=== PATIENT | female | born 1935 | race Caucasian/White ===

== ENCOUNTER → 2018-08-10 | Outpatient (CLI) | payer MEDICARE ==
[~2018-08-10] MED LIST: AMLO5TAB9 PO; DIPH-543 PO; FERS325 PO; FLUT15.88 EN; LISI-613 PO; METO100T14 PO; OMEP20TA25 PO; PRAV20TA4 PO; TRAM50TA4 PO
== END | disposition home or self-care (01) ==
LOC: SHCH 10:17
PROVIDERS: ATTEND Internal Medicine Cardiovascular Disease
DX: I35.8 Other nonrheumatic aortic valve disorders (principal); Z95.2 Presence of prosthetic heart valve
CPT/HCPCS: 93306

== ENCOUNTER → 2018-08-19 | Outpatient (CLI) | payer MEDICARE | END | disposition home or self-care (01) | LOC: SHCH 07:33 | PROVIDERS: ATTEND Internal Medicine Cardiovascular Disease | DX: I70.0 Atherosclerosis of aorta (principal); I71.4 Abdominal aortic aneurysm, without rupture | CPT/HCPCS: 93978 ==

== ENCOUNTER 2018-10-15 06:54 | Day surgery (SDC) | payer MEDICARE ==
[~2018-10-15] VITALS: Ht 162.6 cm; Wt 79.4 kg
[~2018-10-15 06:54] MED LIST changes: +SODIUM CHLORIDE 0.9% 1000ML 1,000 ML IV ONE
[2018-10-15 07:55] VITALS: BP 159/59
[2018-10-15] MEDS ORDERED: POLY1GRA MC (08:24)
[2018-10-15] MEDS ORDERED: APIX5TAB PO (08:24)
[2018-10-15] MEDS ORDERED: MELA5TAB21 PO (08:24)
[2018-10-15] MEDS ORDERED: SODIUM BIC PO (08:24)
[2018-10-15 08:51] VITALS: BP 93/41
[2018-10-15 08:56] VITALS: BP 102/36
[2018-10-15 08:57] VITALS: BP 99/34
[2018-10-15 08:58] VITALS: BP 110/45
[2018-10-15 09:03] VITALS: BP 116/45
== END 2018-10-15 09:11 | disposition home or self-care (01) ==
LOC: DAH 06:54 → ENDO 06:54
PROVIDERS: ATTEND Internal Medicine
DX: K31.7 Polyp of stomach and duodenum (principal); K29.50 Unspecified chronic gastritis without bleeding; E78.5 Hyperlipidemia, unspecified; K44.9 Diaphragmatic hernia without obstruction or gangrene; K31.89 Other diseases of stomach and duodenum; I10 Essential (primary) hypertension; M19.90 Unspecified osteoarthritis, unspecified site; Z68.31 Body mass index [BMI] 31.0-31.9, adult; Z79.899 Other long term (current) drug therapy; Z98.890 Other specified postprocedural states; Z98.49 Cataract extraction status, unspecified eye
CPT/HCPCS: 43239; 43251; 88305; 88342; 93005; A4606; J7030

== ENCOUNTER → 2019-12-21 | Outpatient (CLI) | payer MEDICARE ==
[~2019-12-21] MED LIST changes: +APIX5TAB PO; -DIPH-543 PO; -FLUT15.88 EN; +MELA5TAB21 PO; +POLY1GRA MC; +SODIUM BIC PO; -SODIUM CHLORIDE 0.9% 1000ML 1,000 ML IV ONE; -TRAM50TA4 PO
== END | disposition home or self-care (01) ==
LOC: SHCH 07:52
PROVIDERS: ATTEND Internal Medicine Cardiovascular Disease
DX: I71.4 Abdominal aortic aneurysm, without rupture (principal)
CPT/HCPCS: 93978

== ENCOUNTER → 2021-03-14 | Outpatient (CLI) | payer MEDICARE ==
[~2021-03-14] MED LIST changes: +AMLO-257 PO; -AMLO5TAB9 PO; -LISI-613 PO; +LISI20TA24 PO
== END | disposition home or self-care (01) ==
LOC: SHCH 07:36
PROVIDERS: ATTEND Internal Medicine Cardiovascular Disease
DX: I70.0 Atherosclerosis of aorta (principal); I34.0 Nonrheumatic mitral (valve) insufficiency; I71.4 Abdominal aortic aneurysm, without rupture
CPT/HCPCS: 93306; 93978

== ENCOUNTER 2022-01-05 07:49 | Emergency (ER) | payer MEDICARE ==
[~2022-01-05] VITALS: Ht 162.6 cm; Wt 80.7 kg
[~2022-01-05 07:49] MED LIST changes: +OMEP20TA20 PO; -OMEP20TA25 PO
[2022-01-05] MEDS ORDERED: TRAM50TA4 PO (08:35)
[2022-01-05 08:54] VITALS: BP 138/72
== END 2022-01-05 08:53 | disposition home or self-care (01) ==
LOC: EDH 07:49
DX: S00.03XA Contusion of scalp, initial encounter (principal); I10 Essential (primary) hypertension; Z88.0 Allergy status to penicillin; Z88.5 Allergy status to narcotic agent; Z88.6 Allergy status to analgesic agent; Z79.899 Other long term (current) drug therapy; Z79.01 Long term (current) use of anticoagulants; Z90.89 Acquired absence of other organs; Z90.49 Acquired absence of other specified parts of digestive tract; Z98.890 Other specified postprocedural states; W19.XXXA Unspecified fall, initial encounter; Y93.89 Activity, other specified; Y92.89 Other specified places as the place of occurrence of the external cause; Y99.8 Other external cause status
CPT/HCPCS: 70450; 93005

== ENCOUNTER → 2023-01-28 | Outpatient (CLI) | payer MEDICARE ==
[~2023-01-28] MED LIST changes: +TRAM50TA4 PO
== END | disposition home or self-care (01) ==
LOC: RAH 12:33
PROVIDERS: ATTEND Internal Medicine
DX: R13.10 Dysphagia, unspecified (principal); R63.30 Feeding difficulties, unspecified
CPT/HCPCS: 74230; 92611

== ENCOUNTER 2023-05-18 02:40 | Inpatient (IN) | payer MEDICARE ==
[2023-05-18] VITALS (10 sets, daily range): BP systolic 130–140; BP diastolic 61–77; PULSE 60–126; RESP 16–20; O2SAT 92–97
[~2023-05-18] VITALS: Ht 162.6 cm; Wt 76.9 kg
[~2023-05-18 02:40] MED LIST changes: +SULF1TAB42 PO
[2023-05-18 03:27] LABS: BASOPHILS # (AUTO) 0.05 K/uL (0.00-0.20); BASOPHILS % (AUTO) 0.4 % (0.0-5.0); EOSINOPHILS # (AUTO) 0.22 K/uL (0.00-0.70); EOSINOPHILS % (AUTO) 1.8 % (0.0-8.0); HEMATOCRIT 37.4 % (36-48); IMMATURE GRANULOCYTE ABSOLUTE 0.04 K/uL (0-1); LYMPHOCYTES # (AUTO) 1.4 K/uL (1.0-4.8); LYMPHOCYTES % (AUTO) 11.7 % (21.0-51.0); MEAN CORPUSCULAR HEMOGLOBIN 29.6 pg (27.0-33.0); MEAN CORPUSCULAR HGB CONC 33.2 g/dL (32.0-36.0); MEAN CORPUSCULAR VOLUME 89.3 fL (79-99); MONOCYTES % (AUTO) 8.5 % (3.0-13.0); NEUTROPHILS # (AUTO) 9.3 K/uL (1.8-7.7); NEUTROPHILS % (AUTO) 77.3 % (40.0-77.0); PLATELET COUNT (AUTO) 221 K/uL (130-400); RED BLOOD CELL COUNT(AUTO) 4.19 MIL/uL (4.00-5.50); RED CELL DISTRIBUTION WIDTH 13.7 % (11.0-15.5)
[2023-05-18] MEDS ORDERED: SOLU-MEDROL 125MG VIAL IVP ONE (03:30)
[2023-05-18] MEDS ORDERED: FUROSEMIDE 40MG VIAL IV ONE (03:30)
[2023-05-18] MEDS ORDERED: IPRATROPIUM/ALBUTEROL SULFATE 3 ML SOLUTION IH ONE (03:30)
[2023-05-18 03:38] LABS: CREATININE 1.4 mg/dL (0.5-1.5); POTASSIUM 4.4 mmol/L (3.5-5.1)
[2023-05-18 03:45] LABS: ALBUMIN 3.5 g/dL (3.5-5.0); BILIRUBIN,TOTAL 0.5 mg/dL (0.2-1.0)
[2023-05-18 03:51] LABS: B-TYPE NATRIURETIC PEPTIDE 82 pg/mL (0-100)
[2023-05-18 04:30] LABS: ADD UA MICROSCOPIC YES; APPEARANCE,URINE CLEAR (CLEAR); BILIRUBIN,URINE NEGATIVE (NEGATIVE); COLOR,URINE COLORLESS (YELLOW); GLUCOSE, URINE (UA) NEGATIVE (NEGATIVE); KETONES,URINE NEGATIVE (NEGATIVE); LEUKOCYTE ESTERASE ,URINE NEGATIVE Leu/uL (NEGATIVE); NITRATE,URINE NEGATIVE (NEGATIVE); OCCULT BLOOD,URINE SMALL (NEGATIVE); PROTEIN,URINE NEGATIVE (NEGATIVE); UROBILINOGEN,URINE 0.2 mg/dL (0.2-1.0)
[2023-05-18 04:36] LABS: BACTERIA,URINE RARE /HPF (None Seen); SQUAMOUS EPITHELIAL CELL,UR RARE /HPF (0-2); WBC,URINE 0-1 /HPF (0-1)
[2023-05-18 04:39] LABS: RBC,URINE 0-1 /HPF (0-1)
[2023-05-18] MEDS ORDERED: PHARMACY COMMUNICATION MISC SCH ×2 (05:30→06:00)
[2023-05-18] MEDS ORDERED: CEFTRIAXONE 1G VIAL IVPB ONE (05:30)
[2023-05-18] MEDS: AZITHROMYCIN 500MG+NS 250ML IVPB SCH (05:52)
[2023-05-18] MEDS ORDERED: HYDRALAZINE 20MG/ML VIAL IV PRN (06:00)
[2023-05-18] MEDS ORDERED: CLONIDINE HCL 0.1 MG TABLET PO PRN (06:00)
[2023-05-18] MEDS ORDERED: IPRATROPIUM/ALBUTEROL SULFATE 3 ML SOLUTION IH PRN (06:00)
[2023-05-18] MEDS ORDERED: ONDANSETRON 4MG INJ IVP PRN (06:00)
[2023-05-18] MEDS ORDERED: ACETAMINOPHEN 325 MG TAB PO PRN (06:00)
[2023-05-18 06:26] LABS: CREATINE KINASE, TOTAL 33 U/L (21-232); MYOGLOBIN 68 ng/mL (10-92)
[2023-05-18] MEDS: IPRATROPIUM 0.5 MG/2.5 ML INH IH SCH ×4 (06:41→23:33)
[2023-05-18 06:52] LABS: ABG HCO3 24.2 mmol/L (21.0-28.0); ABG OXYGEN SATURATION 72.9 % (95.0-99.0); ABG PCO2 38 mmHg (32-45); ABG PH 7.421 (7.35-7.450); PO2, ARTERIAL BG < 45.0 mmHg (83.0-108.0); VENT MODE, BG NC (ROOM AIR)
[2023-05-18] MEDS: INSULIN HUMULIN R 100 UNIT/ML 3ML SQ SCH ×4 (07:30→20:28)
[2023-05-18] MEDS ORDERED: IOHEXOL-350 75 ML VIAL IV ONE (07:43)
[2023-05-18] MEDS ORDERED: 0.9%NACL 1000ML 1,000 ML IV SCH (08:00)
[2023-05-18] MEDS ORDERED: ENOXAPARIN SODIUM 30 MG/0.3 ML SQ SCH (09:00)
[2023-05-18] MEDS ORDERED: AZITHROMYCIN 500MG+NS 250ML IV SCH (09:00)
[2023-05-18] MEDS: PANTOPRAZOLE 40 MG TAB DR PO SCH (09:14)
[2023-05-18] MEDS: FUROSEMIDE 40MG VIAL IV SCH (09:14)
[2023-05-18] MEDS: CEFTRIAXONE 2GM VIAL IVPB SCH (20:21)
[2023-05-18 21:47] LABS: SARS-CoV-2, RNA, NAAT NEGATIVE SARS CoV-2 (NEGATIVE)
[2023-05-18 21:53] LABS: INFLUENZA TYPE A Negative For Type A (NEGATIVE); INFLUENZA TYPE B Negative For Type B (NEGATIVE)
[2023-05-19] VITALS (14 sets, daily range): BP systolic 131–174; BP diastolic 66–97; PULSE 64–110; RESP 14–20; O2SAT 91–95
[2023-05-19] MEDS: AZITHROMYCIN 500MG+NS 250ML IVPB SCH (04:34)
[2023-05-19 04:48] LABS: BASOPHILS # (AUTO) 0.01 K/uL (0.00-0.20); BASOPHILS % (AUTO) 0.1 % (0.0-5.0); HEMATOCRIT 36.8 % (36-48); IMMATURE GRANULOCYTE ABSOLUTE 0.09 K/uL (0-1); LYMPHOCYTES # (AUTO) 1.1 K/uL (1.0-4.8); LYMPHOCYTES % (AUTO) 6.5 % (21.0-51.0); MEAN CORPUSCULAR HEMOGLOBIN 29.5 pg (27.0-33.0); MEAN CORPUSCULAR HGB CONC 33.2 g/dL (32.0-36.0); MEAN CORPUSCULAR VOLUME 88.9 fL (79-99); MONOCYTES # (AUTO) 1.2 K/uL (0.1-1.0); MONOCYTES % (AUTO) 7.5 % (3.0-13.0); NEUTROPHILS # (AUTO) 13.8 K/uL (1.8-7.7); NEUTROPHILS % (AUTO) 85.3 % (40.0-77.0); PLATELET COUNT (AUTO) 239 K/uL (130-400); RED BLOOD CELL COUNT(AUTO) 4.14 MIL/uL (4.00-5.50); RED CELL DISTRIBUTION WIDTH 13.8 % (11.0-15.5); WHITE BLOOD COUNT (AUTO) 16.2 K/uL (4.8-10.8)
[2023-05-19 05:00] LABS: INR 1.03 (0.85-1.15); PROTHROMBIN TIME 11.1 SEC (9.6-11.6)
[2023-05-19 05:12] LABS: B-TYPE NATRIURETIC PEPTIDE 189 pg/mL (0-100)
[2023-05-19 05:13] LABS: ALANINE AMINOTRANSFERASE 17 U/L (12-78); ALBUMIN 3.5 g/dL (3.5-5.0); AMMONIA < 10 umol/L (11-32); ASPARTATE AMINOTRANSFERASE 17 U/L (10-37); BILIRUBIN,TOTAL 0.4 mg/dL (0.2-1.0); CARBON DIOXIDE 27 mmol/L (21-32); CHLORIDE 96 mmol/L (101-111); CREATINE KINASE, TOTAL 43 U/L (21-232); CREATININE 1.4 mg/dL (0.5-1.5); GLOMERULAR FILTR. RATE CALC 36 mL/min (>90); GLUCOSE,RANDOM 112 mg/dL (70-105); PHOSPHORUS 4.2 mg/dL (2.5-4.9); POTASSIUM 4.2 mmol/L (3.5-5.1); SODIUM SERUM 132 mmol/L (136-145); THYROID STIMULATING HORMONE 0.57 uIU/mL (0.36-3.74); TOTAL PROTEIN, SERUM 7.4 g/dL (6.0-8.3); UREA NITROGEN, BLOOD 27 mg/dL (7-18)
[2023-05-19] MEDS: INSULIN HUMULIN R 100 UNIT/ML 3ML SQ SCH ×4 (05:30→20:04)
[2023-05-19] MEDS: IPRATROPIUM 0.5 MG/2.5 ML INH IH SCH ×4 (06:26→23:24)
[2023-05-19] MEDS ORDERED: METOPROLOL TARTRATE 1 MG/ML 5ML VIAL IV STA (08:33)
[2023-05-19] MEDS ORDERED: LISI2.5T13 PO (08:49)
[2023-05-19] MEDS ORDERED: CHOL100040 PO (08:49)
[2023-05-19] MEDS ORDERED: OMEP40CA21 PO (08:49)
[2023-05-19] MEDS ORDERED: AMLO-258 PO (08:49)
[2023-05-19] MEDS ORDERED: SODI650T PO (08:49)
[2023-05-19] MEDS ORDERED: CYAN250010 PO (08:49)
[2023-05-19] MEDS ORDERED: METO-409 PO (08:49)
[2023-05-19] MEDS ORDERED: FOLI0.8T22 PO (08:49)
[2023-05-19] MEDS ORDERED: APIX2.5T PO (08:49)
[2023-05-19] MEDS: FUROSEMIDE 40MG VIAL IV SCH (08:56)
[2023-05-19] MEDS: METOPROLOL TARTRATE 25 MG TAB PO SCH ×3 (08:57→20:06)
[2023-05-19] MEDS: CEFTRIAXONE 2GM VIAL IVPB SCH (08:57)
[2023-05-19] MEDS: PREDNISONE 20 MG TABLET PO SCH (08:57)
[2023-05-19] MEDS: PANTOPRAZOLE 40 MG TAB DR PO SCH (08:57)
[2023-05-19] MEDS ORDERED: ENOXAPARIN SODIUM 80 MG/0.8 ML SQ SCH (09:00)
[2023-05-19] MEDS: POLYETHYLENE GLYCOL 3350 17 GM POWD.PACK PO SCH (12:34)
[2023-05-19] MEDS ORDERED: SODIUM CHLORIDE 3% FOR INHALATION 4 ML/AMP VIAL.NEB IH ONE (15:38)
[2023-05-19] MEDS: DOCUSATE SODIUM 100 MG CAP PO SCH (20:07)
[2023-05-20] VITALS (12 sets, daily range): BP systolic 129–159; BP diastolic 60–86; PULSE 54–88; RESP 17–21; O2SAT 93–94
[2023-05-20] MEDS: AZITHROMYCIN 500MG+NS 250ML IVPB SCH (04:24)
[2023-05-20] MEDS: INSULIN HUMULIN R 100 UNIT/ML 3ML SQ SCH ×4 (05:19→20:55)
[2023-05-20] MEDS: IPRATROPIUM 0.5 MG/2.5 ML INH IH SCH ×4 (06:41→23:32)
[2023-05-20 07:09] LABS: HEMATOCRIT 35.6 % (36-48); MEAN CORPUSCULAR HEMOGLOBIN 29.5 pg (27.0-33.0); MEAN CORPUSCULAR HGB CONC 32.6 g/dL (32.0-36.0); MEAN CORPUSCULAR VOLUME 90.6 fL (79-99); RED BLOOD CELL COUNT(AUTO) 3.93 MIL/uL (4.00-5.50); RED CELL DISTRIBUTION WIDTH 13.8 % (11.0-15.5); WHITE BLOOD COUNT (AUTO) 14.5 K/uL (4.8-10.8)
[2023-05-20 07:24] LABS: ALBUMIN 3.1 g/dL (3.5-5.0); BILIRUBIN,TOTAL 0.4 mg/dL (0.2-1.0); CREATININE 1.2 mg/dL (0.5-1.5); POTASSIUM 3.6 mmol/L (3.5-5.1); TOTAL PROTEIN, SERUM 6.8 g/dL (6.0-8.3)
[2023-05-20] MEDS ORDERED: NON-FORMULARY MEDICATION 1 EACH (Folic Acid/Vitamin B Comp W-C (Rena-Vite Tablet) 0.8 MG) PO SCH (09:00)
[2023-05-20] MEDS ORDERED: NON-FORMULARY MEDICATION 1 EACH (Cyanocobalamin (Vitamin B-12) (Vitamin B12) 1,000 MCG) PO SCH (09:00)
[2023-05-20] MEDS: Cholecalciferol (Vitamin D3) (Vitamin D3) 25 MCG PO SCH (09:00)
[2023-05-20] MEDS ORDERED: NON-FORMULARY MEDICATION 1 EACH (Ferrous Sulfate 325 MG) PO SCH (09:00)
[2023-05-20] MEDS: POLYETHYLENE GLYCOL 3350 17 GM POWD.PACK PO SCH (09:00)
[2023-05-20] MEDS: DOCUSATE SODIUM 100 MG CAP PO SCH ×2 (09:00→20:46)
[2023-05-20] MEDS ORDERED: NON-FORMULARY MEDICATION 1 EACH (Amlodipine Besylate 10 MG) PO SCH (09:00)
[2023-05-20] MEDS: CEFTRIAXONE 2GM VIAL IVPB SCH (09:26)
[2023-05-20] MEDS: LISINOPRIL 2.5 MG TABLET PO SCH (09:26)
[2023-05-20] MEDS: FUROSEMIDE 40MG VIAL IV SCH (09:26)
[2023-05-20] MEDS: APIXABAN 2.5 MG TABLET PO SCH ×2 (09:27→20:45)
[2023-05-20] MEDS: CYANOCOBALAMIN (VITAMIN B-12) 1,000 MCG TABLET PO SCH (09:27)
[2023-05-20] MEDS: FERROUS SULFATE 325 MG TABLET.DR PO SCH ×2 (09:27→20:46)
[2023-05-20] MEDS: PREDNISONE 20 MG TABLET PO SCH (09:27)
[2023-05-20] MEDS: AMLODIPINE 5 MG TAB PO SCH (09:27)
[2023-05-20] MEDS: METOPROLOL TARTRATE 25 MG TAB PO SCH ×3 (09:29→20:47)
[2023-05-20] MEDS: Vitamin B Complex/Vit C/Folic Acid PO SCH (09:29)
[2023-05-20] MEDS: PANTOPRAZOLE 40 MG TAB DR PO SCH (09:30)
[2023-05-20] MEDS ORDERED: METOPROLOL TARTRATE 25 MG TAB PO ONE (11:00)
[2023-05-20] MEDS ORDERED: METOPROLOL TARTRATE 1 MG/ML 5ML VIAL IV PRN (11:00)
[2023-05-20] MEDS: ATORVASTATIN 10 MG TABLET PO SCH (20:46)
[2023-05-20] MEDS ORDERED: NON-FORMULARY MEDICATION 1 EACH (Pravastatin Sodium 20 MG) PO SCH (21:00)
[2023-05-21] VITALS (14 sets, daily range): BP systolic 118–158; BP diastolic 56–85; PULSE 60–75; RESP 17–20; O2SAT 87–96
[2023-05-21 05:40] LABS: HEMATOCRIT 41.4 % (36-48); MEAN CORPUSCULAR HEMOGLOBIN 29.2 pg (27.0-33.0); MEAN CORPUSCULAR HGB CONC 32.1 g/dL (32.0-36.0); MEAN CORPUSCULAR VOLUME 90.8 fL (79-99); RED BLOOD CELL COUNT(AUTO) 4.56 MIL/uL (4.00-5.50); RED CELL DISTRIBUTION WIDTH 13.5 % (11.0-15.5); WHITE BLOOD COUNT (AUTO) 11.2 K/uL (4.8-10.8)
[2023-05-21] MEDS: INSULIN HUMULIN R 100 UNIT/ML 3ML SQ SCH ×4 (05:41→20:46)
[2023-05-21] MEDS: AZITHROMYCIN 500MG+NS 250ML IVPB SCH (05:46)
[2023-05-21 06:27] LABS: CREATININE 1.3 mg/dL (0.5-1.5); MAGNESIUM 2.2 mg/dL (1.80-2.40); POTASSIUM 3.8 mmol/L (3.5-5.1)
[2023-05-21] MEDS: IPRATROPIUM 0.5 MG/2.5 ML INH IH SCH ×4 (06:40→23:11)
[2023-05-21] MEDS: FUROSEMIDE 40MG VIAL IV SCH (08:50)
[2023-05-21] MEDS: Vitamin B Complex/Vit C/Folic Acid PO SCH (08:50)
[2023-05-21] MEDS: AMLODIPINE 5 MG TAB PO SCH (08:50)
[2023-05-21] MEDS: CYANOCOBALAMIN (VITAMIN B-12) 1,000 MCG TABLET PO SCH (08:50)
[2023-05-21] MEDS: PANTOPRAZOLE 40 MG TAB DR PO SCH (08:50)
[2023-05-21] MEDS: LISINOPRIL 2.5 MG TABLET PO SCH (08:51)
[2023-05-21] MEDS: PREDNISONE 20 MG TABLET PO SCH (08:51)
[2023-05-21] MEDS: METOPROLOL TARTRATE 25 MG TAB PO SCH ×3 (08:51→20:57)
[2023-05-21] MEDS: FERROUS SULFATE 325 MG TABLET.DR PO SCH ×2 (08:51→20:57)
[2023-05-21] MEDS: DOCUSATE SODIUM 100 MG CAP PO SCH ×2 (08:52→21:00)
[2023-05-21] MEDS: APIXABAN 2.5 MG TABLET PO SCH ×2 (08:52→20:57)
[2023-05-21] MEDS: Cholecalciferol (Vitamin D3) (Vitamin D3) 25 MCG PO SCH (08:53)
[2023-05-21] MEDS: POLYETHYLENE GLYCOL 3350 17 GM POWD.PACK PO SCH (09:00)
[2023-05-21] MEDS: CEFTRIAXONE 2GM VIAL IVPB SCH (09:19)
[2023-05-21] MEDS ORDERED: AZIT250T9 PO (13:58)
[2023-05-21] MEDS ORDERED: FERS325 PO (13:58)
[2023-05-21] MEDS ORDERED: CHOL100040 PO (13:59)
[2023-05-21] MEDS ORDERED: DOXY100T2 PO (13:59)
[2023-05-21] MEDS: ATORVASTATIN 10 MG TABLET PO SCH (20:58)
[2023-05-21] MEDS ORDERED: NITROFURANTOIN MONOHYD/M-CRYST 100 MG CAPSULE PO SCH (22:30)
[2023-05-22 04:00] VITALS: BP 132/67; PULSE 60; PULSE 64; RESP 18; RESP 20
[2023-05-22] MEDS: AZITHROMYCIN 500MG+NS 250ML IVPB SCH (05:53)
[2023-05-22] MEDS: INSULIN HUMULIN R 100 UNIT/ML 3ML SQ SCH ×2 (06:15→11:16)
[2023-05-22 06:45] VITALS: PULSE 69; RESP 18; O2SAT 98
[2023-05-22 06:47] VITALS: PULSE 69; RESP 18
[2023-05-22] MEDS: IPRATROPIUM 0.5 MG/2.5 ML INH IH SCH ×2 (06:47→11:26)
[2023-05-22 08:00] VITALS: BP 117/62; PULSE 62; RESP 17; O2SAT 99
[2023-05-22] MEDS: Cholecalciferol (Vitamin D3) (Vitamin D3) 25 MCG PO SCH (09:00)
[2023-05-22] MEDS: DOCUSATE SODIUM 100 MG CAP PO SCH (09:00)
[2023-05-22] MEDS: POLYETHYLENE GLYCOL 3350 17 GM POWD.PACK PO SCH (09:00)
[2023-05-22] MEDS: AMLODIPINE 5 MG TAB PO SCH (09:25)
[2023-05-22] MEDS: CYANOCOBALAMIN (VITAMIN B-12) 1,000 MCG TABLET PO SCH (09:26)
[2023-05-22] MEDS: PREDNISONE 20 MG TABLET PO SCH (09:28)
[2023-05-22] MEDS: FERROUS SULFATE 325 MG TABLET.DR PO SCH (09:29)
[2023-05-22] MEDS: Vitamin B Complex/Vit C/Folic Acid PO SCH (09:29)
[2023-05-22] MEDS: METOPROLOL TARTRATE 25 MG TAB PO SCH ×2 (09:33→14:57)
[2023-05-22] MEDS: APIXABAN 2.5 MG TABLET PO SCH (09:33)
[2023-05-22] MEDS: LISINOPRIL 2.5 MG TABLET PO SCH (09:33)
[2023-05-22] MEDS: PANTOPRAZOLE 40 MG TAB DR PO SCH (09:34)
[2023-05-22] MEDS: CEFTRIAXONE 2GM VIAL IVPB SCH (09:35)
[2023-05-22] MEDS: FUROSEMIDE 40MG VIAL IV SCH (09:35)
[2023-05-22 11:25] VITALS: PULSE 66; RESP 20; O2SAT 97
[2023-05-22 11:26] VITALS: PULSE 66; RESP 20
== END 2023-05-22 15:40 | disposition home or self-care (01) | DRG 193 ==
LOC: EDH 02:40 → OBSVTOIN 05:33 → EDHIP 05:33 → 3AH 15:00
PROVIDERS: ADMIT Internal Medicine; ATTEND Internal Medicine
DX: J18.9 Pneumonia, unspecified organism (principal); J96.21 Acute and chronic respiratory failure with hypoxia; I48.20 Chronic atrial fibrillation, unspecified; N39.0 Urinary tract infection, site not specified; Z20.822 Contact with and (suspected) exposure to COVID-19; I11.0 Hypertensive heart disease with heart failure; I50.9 Heart failure, unspecified; I25.10 Atherosclerotic heart disease of native coronary artery without angina pectoris; E78.5 Hyperlipidemia, unspecified; Z96.653 Presence of artificial knee joint, bilateral; Z87.891 Personal history of nicotine dependence; Z90.49 Acquired absence of other specified parts of digestive tract; Z88.5 Allergy status to narcotic agent; Z88.0 Allergy status to penicillin; Z88.8 Allergy status to other drugs, medicaments and biological substances; Z79.899 Other long term (current) drug therapy
CPT/HCPCS: 36415; 36600; 71045; 71270; 80048; 80053; 81001; 82140; 82550; 82803; 82948; 83036; 83605; 83735; 83874; 83880; 84100; 84145; 84443; 84484; 85025; 85027; 85378; 85610; 87071; 87077; 87088; 87186; 87205; 87635; 87804; 92610; 93306; 94640; 94664; 94667; 94668; 94760; 99291; 99292; G0378; J0456; J0696; J1650; J1940; J2930; J3490; Q9967; G8980-CI; G8983-CI